=== PATIENT | male | born 1940 | race Caucasian/White ===

== ENCOUNTER 2021-07-04 00:33 | Emergency (ER) | payer OTHER ==
--- OUTSIDE RECORDS SUMMARY | 2021-07-04 00:36 | XMS REPORT | Continuity of Care Document ---
:1940 Author Organization [facility] t Address [address] [place] [address] Dr. Garcia [address] [place] [address] Care Team Providers Name Role Phone Unavailable Unavailable Unavailable Problems This patient has no known problems. Allergies, Adverse Reactions, Alerts This patient has no known allergies or adverse reactions. Medications This patient has no known medications. Procedures This patient has no known procedures. Encounters Start End Encounter Admission Attending Care Care Encounter Source Date/Time Date/Time Type Type Clinicians Facility Department ID 2018-11-09 2018-11-09 Inpatient E [facility] [address] [facility] 18:05:00 15:34:00 Results This patient has no known results.
[2021-07-04 01:24] LABS: Absolute Lymphocytes (CBC) 1.4 K/uL (0.7-4.9); Hematocrit 34.2 % (39.6-49.0); Lymphocytes % 19.9 % (15.3-44.8); MPV 7.2 fL (7.6-11.3); RBC Red Blood Cell Count 3.88 M/uL (4.33-5.43)
[2021-07-04] MEDS ORDERED: NA CHLORIDE 0.9% 500 ML ONE (01:31)
[2021-07-04 01:44] LABS: Urine Blood 1+ (Negative); Urine Glucose Negative (Negative); Urine Protein 2+ (Negative); Urine Specific Gravity 1.025 (1.005-1.030); Urine pH 5.5 (5.0-7.0)
[2021-07-04 01:45] LABS: Potassium 4.4 mmol/L (3.5-5.1)
[2021-07-04 01:51] LABS: Urine Bacteria >50 /HPF (NONE SEEN); Urine RBC <5 /HPF (NONE SEEN)
[2021-07-04] MEDS ORDERED: CEFTRIAXONE 1000 MG/VIAL ONE (02:15)
--- NOTE | 2021-07-04 02:24 | ER ---
Nurse's Notes [facility] Name: Tan Hawk Age: 81 yrs Sex: Male : 1940 Arrival Date: 07/04/2021 Time: 00:36 Bed 20 Private MD: Diagnosis: Constipation, unspecified;UTI/ Urinary tract infection, site not specified Presentation: 07/04 00:36 Chief complaint: EMS states: pt has been having difficulty urinating and having bowel sm5 movements for a few days. when pt is able to urinate, his urine is cloudy. pt's states his bowel movements are hard and dark in color. Coronavirus screen: Vaccine status: Patient reports receiving the 2nd dose of the covid vaccine. Ebola Screen: No symptoms or risks identified at this time. Initial Sepsis Screen: Does the patient meet any 2 criteria? No. Patient's initial sepsis screen is negative. Does the patient have a suspected source of infection? No. Patient's initial sepsis screen is negative. Risk Assessment: Do you want to hurt yourself or someone else? Patient reports no desire to harm self or others. Onset of symptoms was July 01, 2021. 00:36 Method Of Arrival: EMS: [facility] 00:36 Acuity: [place] 4 sm5 Triage Assessment: 00:39 General: Appears in no apparent distress. Behavior is cooperative, appropriate for age. sm5 Pain: Denies pain. GI: Parent/caregiver reports the patient having dark hard stools. : Reports inability to void, cloudy urine. Historical: - Allergies: 00:38 Amoxicillin; sm5 - PMHx: 00:38 Cerebrovascular accident; Hypertensive disorder; sm5 - Immunization history:: Client reports receiving the 2nd dose of the Covid vaccine, Flu vaccine is not up to date. - Social history:: Smoking status: Patient/guardian denies using tobacco, the patient reports quitting approximately 40 years ago. Screenin:42 Abuse screen: Denies threats or abuse. Denies injuries from another. Nutritional kd3 screening: No deficits noted. Tuberculosis screening: No symptoms or risk factors identified. Fall Risk Fall in past 12 months (25 points). Assessment: 00:40 General: Appears in no apparent distress. Behavior is calm, cooperative, appropriate kd3 for age. Neuro: Level of Consciousness is awake, alert, Oriented to person, place, time, situation, Speech is slurred, slurred, sometimes normal. at baseline due to previous stroke . 02:40 Reassessment: No changes from previously documented assessment. Patient and/or family kd3 updated on plan of care and expected duration. Pain level reassessed. Patient is alert, oriented x 3, equal unlabored respirations, skin warm/dry/pink. Vital Signs: 00:36 BP 141 / 76; Pulse 63; Resp 17; Temp 97.6(O); Pulse Ox 100% on R/A; Weight 45.36 kg; sm5 Height 5 ft. 7 in. (170.18 cm); Pain 0/10; 00:41 BP 134 / 95; Pulse 68; Resp 16; Pulse Ox 100% on R/A; kd3 02:41 BP 132 / 75; Pulse 82; Resp 16; Pulse Ox 100% on R/A; kd3 00:36 Body Mass Index 15.66 (45.36 kg, 170.18 cm) 5 ED Course: 00:36 Patient arrived in ED. sm5 00:37 Yaya Hare NP is PHCP. pm1 00:37 Anthony Guthrie MD is Attending Physician. pm1 00:38 Triage completed. sm5 00:39 Arm band placed on right wrist. sm5 00:40 Neetu Antonio, LAVERN is Primary Nurse. kd3 00:42 Patient has correct armband on for positive identification. Bed in low position. Call 3 light in reach. Side rails up X 1. 01:14 CBC with Diff Sent. kd3 01:14 BMP Sent. kd3 01:46 CT Abd/Pelvis - Without Contrast In Process Unspecified. EDMS 01:49 Inserted saline lock: 22 gauge in right antecubital area, using aseptic technique. kd3 02:40 No provider procedures requiring assistance completed. kd3 03:12 IV discontinued, intact, bleeding controlled, No redness/swelling at site. Pressure kd3 dressing applied. Administered Medications: 01:49 Drug: NS 0.9% 500 ml Route: IV; Rate: bolus; Site: right antecubital; kd3 02:33 Follow up: Response: No adverse reaction; Rate change 500 ml; IV Status: Completed kd3 infusion 02:42 Follow up: Rate change 500 ml; IV Status: Completed infusion kd3 02:16 Drug: Rocephin (cefTRIAXone) 1 grams Route: IV; Rate: calculated rate; Site: right kd3 antecubital; 02:32 Follow up: Response: No adverse reaction kd3 02:33 Follow up: Response: No adverse reaction kd3 02:42 Follow up: Rate change 10 ml; IV Status: Completed infusion kd3 02:42 Follow up: Response: No adverse reaction kd3 02:32 Drug: traMADol 50 mg Route: PO; kd3 02:32 Follow up: Response: No adverse reaction kd3 Outcome: 02:23 Discharge ordered by MD. pm1 02:40 Discharged to home via ambulance. kd3 02:40 Condition: stable 02:40 Discharge instructions given to patient, family, Instructed on discharge instructions, follow up and referral plans. medication usage, Demonstrated understanding of instructions, follow-up care, medications, Prescriptions given X 2. 03:44 Patient left the ED. kd3 Signatures: Dispatcher [employer] EDMS Yaya Hare NP RECRUITMENT INTERN pm1 Neetu Antonio RN RN kd3 Janet Olea RN RN sm5
--- NOTE | 2021-07-04 02:24 | EDPHYS ---
Physician Documentation [facility] Name: Tan Hawk Age: 81 yrs Sex: Male : 1940 Arrival Date: 07/04/2021 Time: 00:36 Bed 20 Private MD: ED Physician Anthony Guthrie HPI: 07/04 01:01 This 81 yrs old Male presents to ER via EMS with complaints of constipation. pm1 01:01 The patient presents with Constipation. pm1 01:01 Onset: The symptoms/episode began/occurred 1 week(s) ago, Patient with small hard bowel pm1 movements for the past week. Last small bowel movement this AM. Associated signs and symptoms: Pertinent positives: dysuria, Pertinent negatives: nausea, vomiting, and diarrhea, chest pain, fever, shortness of breath. Modifying factors: The symptoms are alleviated by nothing, the symptoms are aggravated by nothing. The patient has been recently seen by a physician: Patient seen by urology last week for issues with urinating. Had voiding test and has follow up appointment for test results this week. Historical: - Allergies: 00:38 Amoxicillin; sm5 - PMHx: 00:38 Cerebrovascular accident; Hypertensive disorder; sm5 - Immunization history:: Client reports receiving the 2nd dose of the Covid vaccine, Flu vaccine is not up to date. - Social history:: Smoking status: Patient/guardian denies using tobacco, the patient reports quitting approximately 40 years ago. ROS: 01:01 Constitutional: Negative for fever, chills, and weight loss, Cardiovascular: Negative pm1 for chest pain, palpitations, and edema, Respiratory: Negative for shortness of breath, cough, wheezing, and pleuritic chest pain. 01:01 Back: Negative for injury and pain, MS/Extremity: Negative for injury and deformity, Skin: Negative for injury, rash, and discoloration, Neuro: Negative for headache, weakness, numbness, tingling, and seizure. 01:01 Abdomen/GI: Positive for abdominal pain, constipation, Negative for nausea, vomiting, and diarrhea. 01:01 : Positive for Dark urine. 01:01 All other systems are negative. Exam: 01:01 Constitutional: This is a well developed, well nourished patient who is awake, alert, pm1 and in no acute distress. Head/Face: Normocephalic, atraumatic. 01:01 Skin: Warm, dry with normal turgor. Normal color with no rashes, no lesions, and no evidence of cellulitis. MS/ Extremity: Pulses equal, no cyanosis. Neurovascular intact. Full, normal range of motion. 01:01 ENT: Exam is negative for acute changes, Mouth: no acute changes, Lips: normal, moist, Oral mucosa: normal, pink and intact, moist. 01:01 Cardiovascular: Exam negative for acute changes, Rate: normal, Rhythm: regular, Pulses: no pulse deficits are appreciated. 01:01 Respiratory: Exam negative for acute changes, respiratory distress, shortness of breath. 01:01 Abdomen/GI: Inspection: abdomen appears normal, Palpation: abdomen is soft and non-tender, in all quadrants. 01:01 Neuro: Exam negative for acute changes, Orientation: is normal, Mentation: is normal, Motor: is normal, moves all fours. Vital Signs: 00:36 BP 141 / 76; Pulse 63; Resp 17; Temp 97.6(O); Pulse Ox 100% on R/A; Weight 45.36 kg; 5 Height 5 ft. 7 in. (170.18 cm); Pain 0/10; 00:41 BP 134 / 95; Pulse 68; Resp 16; Pulse Ox 100% on R/A; kd3 02:41 BP 132 / 75; Pulse 82; Resp 16; Pulse Ox 100% on R/A; kd3 00:36 Body Mass Index 15.66 (45.36 kg, 170.18 cm) [facility] MDM: 00:53 Patient medically screened. pm1 02:23 Data reviewed: vital signs. Data interpreted: Pulse oximetry: on room air is 100 %. pm1 Interpretation: normal. Counseling: I had a detailed discussion with the patient and/or guardian regarding: the historical points, exam findings, and any diagnostic results supporting the discharge/admit diagnosis, lab results, radiology results, the need for outpatient follow up, to return to the emergency department if symptoms worsen or persist or if there are any questions or concerns that arise at home. 07/04 00:58 Order name: CBC with Diff; Complete Time: 02:07 pm1 07/04 00:58 Order name: BMP; Complete Time: 02:07 pm1 07/04 00:58 Order name: CT Abd/Pelvis - Without Contrast pm1 07/04 00:58 Order name: Urine Microscopic Only; Complete Time: 02:07 pm1 07/04 01:44 Order name: Urine Dipstick-Ancillary; Complete Time: 02:07 EDMS 07/04 01:52 Order name: Urine Culture EDMS 07/04 00:58 Order name: Urine Dipstick-Ancillary (obtain specimen); Complete Time: 01:49 pm1 07/04 00:58 Order name: Bladder Scanner; Complete Time: 01:25 pm1 07/04 00:58 Order name: IV Saline Lock; Complete Time: 01:14 pm1 Administered Medications: 01:49 Drug: NS 0.9% 500 ml Route: IV; Rate: bolus; Site: right antecubital; kd3 02:33 Follow up: Response: No adverse reaction; Rate change 500 ml; IV Status: Completed kd3 infusion 02:42 Follow up: Rate change 500 ml; IV Status: Completed infusion kd3 02:16 Drug: Rocephin (cefTRIAXone) 1 grams Route: IV; Rate: calculated rate; Site: right kd3 antecubital; 02:32 Follow up: Response: No adverse reaction kd3 02:33 Follow up: Response: No adverse reaction kd3 02:42 Follow up: Rate change 10 ml; IV Status: Completed infusion kd3 02:42 Follow up: Response: No adverse reaction kd3 02:32 Drug: traMADol 50 mg Route: PO; kd3 02:32 Follow up: Response: No adverse reaction kd3 Disposition: 04:09 Co-signature as Attending Physician, Anthony Guthrie MD I agree with the assessment and kdr plan of care. Disposition Summary: 07/04/21 02:23 Discharge Ordered Location: Home pm1 Problem: new pm1 Symptoms: have improved pm1 Condition: Stable pm1 Diagnosis - Constipation, unspecified pm1 - UTI/ Urinary tract infection, site not specified pm1 Followup: pm1 - With: Emergency Department - When: As needed - Reason: Worsening of condition Followup: pm1 - With: Private Physician - When: 2 - 3 days - Reason: Recheck today's complaints, Continuance of care, Re-evaluation by your physician Discharge Instructions: - Discharge Summary Sheet pm1 - Constipation, Adult pm1 - Urinary Tract Infection, Adult pm1 Forms: - Medication Reconciliation Form pm1 - Thank You Letter pm1 - Antibiotic Education pm1 - Prescription Opioid Use pm1 Prescriptions: - Miralax 17 gram Oral powder in packet - take 1 packet by ORAL route once daily As needed; 7 packet; Refills: 0, Product pm1 Selection Permitted - Bactrim DS 800-160 mg Oral Tablet - take 1 tablet by ORAL route every 12 hours for 10 days; 20 tablet; Refills: 0, pm1 Product Selection Permitted Signatures: Dispatcher [employer] EDAnthony Garzon MD MD kdr Marinas, Patrick, NP GUN EXAMINER pm1 Neetu Antonio, RN RN kd3 Janet Olea RN RN sm5
[2021-07-04] MEDS ORDERED: TRAMADOL HCL 50 MG TAB ONE (02:32)
[2021-07-04 03:50] VITALS: TEMP 97.6; O2SAT 100
[2021-07-04 03:52] VITALS: BP 132/75
--- NOTE | 2021-07-04 10:48 | RAD REPORT ---
EXAM DESCRIPTION: CT ABDOMEN PELVIS WITHOUT IV CONTRAST CLINICAL HISTORY: Dysuria;Constipation COMPARISON: None. TECHNIQUE: CT ABDOMEN PELVIS WITHOUT IV CONTRAST on 07/04/2021 12:58 AM GREENHOUSE TECHNICIAN This exam was performed according to our departmental dose-optimization program, which includes autom ated exposure control, adjustment of the mA and/or kV according to patient size and/or use of iterati ve reconstruction technique. FINDINGS: There is bibasilar atelectasis and scarring. Abdomen: The liver is normal in appearance. There is no biliary dilatation. Gallbladder is normal in appearance. Supraumbilical ventral hernia repair was performed. The pancreas and spleen are normal in appearance. The adrenal glands and kidneys are unremarkable. Abdominal aorta is densely calcified without aneurysm. There is no free air. There is no retroperiton eal adenopathy. Pelvis: There is large amount of distal colonic stool. There is mild diverticulosis throughout the co jose. There is mild thickening of the urinary bladder measuring up to 8 mm. There is no free fluid. Skeleton: There are no acute osseous findings. No suspicious bony lesions. There is rightward curvatu re of the lumbar spine. IMPRESSION: Constipation. Diffuse thickening of the urinary bladder. Electronically signed by: Ulises Tee MD 07/04/2021 2:14 AM GREENHOUSE TECHNICIAN Due to temporary technical issues with the PACS/Fluency reporting system, reports are being signed by the in house radiologists without review as a courtesy to insure prompt reporting. The interpreting radiologist is fully responsible for the content of the report.
== END 2021-07-04 03:44 | disposition home or self-care (01) ==
LOC: ER 00:33
DX: N39.0 Urinary tract infection, site not specified (principal); K59.00 Constipation, unspecified; I10 Essential (primary) hypertension; Z88.1 Allergy status to other antibiotic agents
CPT/HCPCS: 87088; 85025; 87086; 80048; 36415; 74176; J7040; 81003; 81015; 96365; 99284

== ENCOUNTER 2021-07-07 16:28 | Inpatient (IN) | payer OTHER ==
--- OUTSIDE RECORDS SUMMARY | 2021-07-07 16:30 | XMS REPORT | Continuity of Care Document ---
:1940 Author Organization [facility] t Address [address] [place] [address] Dr. Garcia [address] [place] [address] Care Team Providers Name Role Phone Unavailable [...] Facility Department ID 2018-11-09 2018-11-09 Inpatient E [facility] [address] [facility] 18:05:00 15:34:00 Results This patient has no known results.
--- NOTE | 2021-07-07 17:12 | RAD REPORT ---
EXAM DESCRIPTION: CT - Head C Spine Mpr Wo Con - 07/07/2021 4:54 pm CLINICAL HISTORY: Head and neck injury status post fall. Head and neck pain COMPARISON: None. TECHNIQUE: Computed axial tomography of the head and cervical spine was obtained. Sagittal and coronal reconstruction was performed. All CT scans are performed using dose optimization technique as appropriate and may include automated exposure control or mA/KV adjustment according to patient size. FINDINGS: The images are degraded by patient motion artifact. 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 Cerebral atrophy An intracranial bleed is not seen. The ventricles are normal in caliber. An extra-axial fluid collect ion is not noted.Fluid within the visualized sinuses and mastoids is not seen A cervical fracture is not visualized. No dislocation is noted. IMPRESSION: Images degraded by patient motion artifact No acute intracranial abnormality is seen. A cervical fracture is not visualized. If the patient continues to have symptoms to suggest intracra nial /spinal cord pathology then MRI would be recommended
--- NOTE | 2021-07-07 17:19 | RAD REPORT ---
EXAM DESCRIPTION: Sandy Single View07/07/2021 5:07 pm CLINICAL HISTORY: Chest pain COMPARISON: 2009 FINDINGS: The lungs appear clear of acute infiltrate. The heart is normal size IMPRESSION: No acute abnormalities displayed
[2021-07-07 17:21] LABS: Absolute Lymphocytes (CBC) 0.8 K/uL (0.7-4.9); Hematocrit 26.2 % (39.6-49.0); Lymphocytes % 8.6 % (15.3-44.8); MPV 7.3 fL (7.6-11.3); RBC Red Blood Cell Count 2.97 M/uL (4.33-5.43)
[2021-07-07 17:41] LABS: Urine Blood 2+ (Negative); Urine Glucose Negative (Negative); Urine Protein Negative (Negative); Urine Specific Gravity 1.025 (1.005-1.030)
[2021-07-07 17:45] LABS: Albumin 3.6 g/dL (3.4-5.0); Bilirubin Direct 0.1 mg/dL (0-0.2); Bilirubin Total 0.3 mg/dL (0.2-1.0); Potassium 5.1 mmol/L (3.5-5.1); Protein, Total 6.9 g/dL (6.4-8.2); Troponin High Sensitivity 8.7 pg/mL (<58.9)
--- NOTE | 2021-07-07 21:02 | EDPHYS ---
Physician Documentation [facility] Name: Tan Hawk Age: 81 yrs Sex: Male : 1940 Arrival Date: 07/07/2021 Time: 16:41 Bed 24 Private MD: ED Physician Anthony Guthrie HPI: 07/07 16:46 This 81 yrs old Male presents to ER via EMS with complaints of Fall Injury. [facility] 16:46 Details of fall: The patient fell from an upright position. Onset: The symptoms/episode jmm began/occurred acutely, 1 day(s) ago. Associated injuries: The patient sustained injury to the head. This is a 81-year-old male with history of CVA and hypertension the presents emerged department with multiple falls which occurred yesterday. Patient hit his head at approximately 1 AM early this morning. Family states that patient is at creased confusion today. Patient is currently being treated with Bactrim for UTI. Patient was seen on the eighth of this month.. Historical: - Allergies: 16:59 Amoxicillin; jl7 - PMHx: 16:59 Cerebrovascular accident; Hypertensive disorder; jl7 - Immunization history:: Adult Immunizations unknown. - Social history:: Smoking status: unknown. ROS: 16:46 Cardiovascular: Negative for chest pain, palpitations, and edema. jmm 16:46 Constitutional: Positive for fatigue. 16:46 Respiratory: Positive for Negative for shortness of breath. 16:46 Neuro: Positive for altered mental status. 16:46 All other systems are negative. Exam: 16:46 Eyes: EOMI, no conjunctival erythema appreciated ENT: Moist Mucus Membranes Neck: jmm Trachea midline, Supple Chest/axilla: Normal chest wall appearance and motion. Cardiovascular: Regular rate and rhythm. No edema appreciated Respiratory: Normal respirations, no respiratory distress appreciated Abdomen/GI: Non distended, soft Back: Normal ROM Skin: General appearance color normal 16:46 Constitutional: The patient appears in no acute distress, alert, awake. 16:46 Head/face: 2 cm laceration noted to the posterior scalp. 16:46 Musculoskeletal/extremity: No edema appreciated. 16:46 Skin: 2 cm laceration over the posterior scalp. 16:46 Neuro: Orientation: to person, place. 16:46 Psych: Behavior/mood is pleasant, cooperative. Vital Signs: 16:41 BP 97 / 55; Pulse 76; Resp 17; Temp 97.5; Pulse Ox 96% ; Weight 45.36 kg; Height 5 ft. jl7 6 in. (167.64 cm); Pain 0/10; 17:05 BP 97 / 73; Pulse 69; Resp 20 S; Pulse Ox 100% on R/A; jg9 19:19 BP 111 / 60; Pulse 79; Resp 18 S; Pulse Ox 99% on R/A; as6 20:37 BP 130 / 119; Pulse 83; Resp 20; Pulse Ox 92% on R/A; tw5 21:50 BP 125 / 66; Pulse 88; Resp 24; Pulse Ox 96% on R/A; tw5 22:22 BP 143 / 130; Pulse 87; Resp 18; Pulse Ox 96% on R/A; tw5 16:41 Body Mass Index 16.14 (45.36 kg, 167.64 cm) jl7 Benita Coma Score: 16:41 Eye Response: spontaneous(4). Verbal Response: oriented(5). Motor Response: obeys jl7 commands(6). Total: 15. Trauma Score (Adult): 16:41 Eye Response: spontaneous(1); Verbal Response: confused(1); Motor Response: obeys jl7 commands(2); Systolic BP: > 89 mm Hg(4); Respiratory Rate: 10 to 29 per min(4); England Score: 14; Trauma Score: 12 MDM: 16:46 Patient medically screened. [facility] 21:00 Data reviewed: vital signs, nurses notes. Counseling: I had a detailed discussion with [facility] the patient and/or guardian regarding: the historical points, exam findings, and any diagnostic results supporting the discharge/admit diagnosis, lab results, radiology results, the need for further work-up and treatment in the hospital. ED course: I discussed the patient with Aston DURHAM whom accepted the patient to Dr. Buitrago service. . 22:12 ED course: Patient's labs are concerning for acute kidney injury. There is increased [facility] creatinine. There is a drop of 2-1/2 points in the hemoglobin from the eighth. Patient denied dark tarry stools. Guaiac did not reveal a positive result. I do not currently suspect GI bleed.. 07/07 16:47 Order name: Basic Metabolic Panel [facility] 07/07 16:47 Order name: CBC with Diff; Complete Time: 17:57 [facility] 07/07 16:47 Order name: LFT's; Complete Time: 17:57 [facility] 07/07 16:47 Order name: Troponin HS; Complete Time: 17:57 [facility] 07/07 16:48 Order name: Basic Metabolic Panel; Complete Time: 17:57 [facility] 07/07 17:40 Order name: Urine Dipstick-Ancillary; Complete Time: 17:57 [facility] 07/07 21:03 Order name: SARS-COV-2 RT PCR (Document "Date of Onset" if Symptomatic); Complete Time: [facility] 15:07/08 04:07 Order name: CBC with Automated Diff; Complete Time: 15:29 [facility] 07/08 04:33 Order name: Comprehensive Metabolic Panel; Complete Time: 15:29 [facility] 07/08 04:33 Order name: Phosphorus; Complete Time: 15:29 [facility] 07/08 04:33 Order name: Lipid Profile; Complete Time: 15:29 [facility] 07/08 04:33 Order name: T4 Free; Complete Time: 15:29 [facility] 07/08 04:33 Order name: Magnesium; Complete Time: 15:29 [facility] 07/08 04:33 Order name: Thyroid Stimulating Hormone; Complete Time: 15:29 [facility] 07/07 16:47 Order name: CT Head C Spine; Complete Time: 17:15 [facility] 07/07 16:47 Order name: Urine Dipstick-Ancillary (obtain specimen); Complete Time: 19:19 [facility] 07/07 16:47 Order name: XRAY Chest (1 view); Complete Time: 17:29 [facility] 07/07 16:47 Order name: EKG; Complete Time: 16:48 [facility] 07/07 16:47 Order name: Cardiac monitoring; Complete Time: 17:16 [facility] 07/07 16:47 Order name: EKG - Nurse/Tech; Complete Time: 17:29 [facility] 07/08 04:34 Order name: Creatine Phosphokinase; Complete Time: 15:29 [facility] 07/08 09:56 Order name: Urinalysis; Complete Time: 15:29 [facility] 07/08 10:05 Order name: UR SODIUM; Complete Time: 15:29 [facility] 07/08 10:05 Order name: UR POTASSIUM; Complete Time: 15:29 [facility] 07/08 10:07 Order name: Urine Microscopic Only; Complete Time: 15:29 [facility] 07/08 10:11 Order name: Ur Protein; Complete Time: 15:29 [facility] 07/08 10:27 Order name: Osmolality, Urine; Complete Time: 15:29 [facility] 07/08 10:34 Order name: US; Complete Time: 15:29 [facility] 07/07 16:47 Order name: IV Saline Lock; Complete Time: 17:16 [facility] 07/07 16:47 Order name: Labs collected and sent; Complete Time: 17:16 [facility] 07/07 16:47 Order name: O2 Per Protocol; Complete Time: 19:14 [facility] 07/07 16:47 Order name: O2 Sat Monitoring; Complete Time: 17:16 [facility] Administered Medications: 21:38 CANCELLED (Physician Discretion): NS 0.45 % 1000 ml IV at bolus once sb3 21:50 Drug: NS 0.9% 1000 ml Route: IV; Rate: 1 bolus; Site: left antecubital; tw5 07/08 00:33 Follow up: IV Status: Completed infusion; IV Intake: 1000ml sv1 Disposition Summary: 07/07/21 21:02 Hospitalization Ordered Hospitalization Status: Observation [facility] Provider: Elliott Siegel Condition: Stable [facility] Problem: new [facility] Symptoms: are unchanged [facility] Bed/Room Type: Standard [facility] Location: Telemetry/MedSurg (observation)(07/08/21 16:27) dw Room Assignment: [facility](07/08/21 16:27) dw Diagnosis - Acute Kidney Injury jmm - Dehydration jmm - Near Syncope [facility] Forms: - Medication Reconciliation Form jmm - SBAR form [facility] Signatures: Dispatcher [employer] Silvia Martinez RN RN Herman Arora PA PA Jenna Cohen RN RN Zeynep Ibanez RN RN Taisha Galan tw5 Nai Clancy PA PA sb3 Mauricio Winslow RN sv1 Corrections: (The following items were deleted from the chart) 07/07 21:36 21:02 Telemetry/MedSurg (Inpatient) [facility] bb 21:36 21:02 jmm bb 21:38 21:37 NS 0.45 % 1000 ml IV at bolus once ordered. sb3 sb3 07/08 16:07/07 21:36 BR ER HOLD bb dw 07/08 21:36 ERHOLD- bb dw
--- NOTE | 2021-07-07 21:02 | ER ---
Nurse's Notes [facility] Name: Tan Hawk Age: 81 yrs Sex: Male : 1940 Arrival Date: 07/07/2021 Time: 16:41 Bed 24 Private MD: Diagnosis: Acute Kidney Injury;Dehydration;Near Syncope Presentation: 07/07 16:41 Chief complaint: EMS states: Pt fell last night at 1999, hit back of head, takes jl7 Plavix, pt's is primary caregiver and reports pt has had increased confusion today. Care prior to arrival: IV initiated. 18 GA, in the left antecubital area, Glucose check: 104. Mechanism of Injury: Fall from standing position. Trauma event details: Injury occurred in the [facility], Injury occurred: at home. Injury occurred: July 06, 2021 Injury occurred at: 20:00. 16:41 Acuity: [place] 2 jl7 16:41 Method Of Arrival: EMS: [facility] jl7 16:58 Coronavirus screen: At this time, the client does not indicate any symptoms associated jl7 with coronavirus-19. Ebola Screen: No symptoms or risks identified at this time. Initial Sepsis Screen: Does the patient meet any 2 criteria? No. Patient's initial sepsis screen is negative. Does the patient have a suspected source of infection? No. Patient's initial sepsis screen is negative. Risk Assessment: Do you want to hurt yourself or someone else? Patient reports no desire to harm self or others. Onset of symptoms was July 06, 2021 at 20:00. Trauma Activation: Alert Physician: ED Physician; Name: Jerri; Notified At: 16:40; Arrived At: 16:41 Physician: General Surgeon; Name: ; Notified At: 16:41; Arrived At: Physician: Radiology; Name: Sathya; Notified At: 16:41; Arrived At: 16:41 Physician: Respiratory; Name: ; Notified At: 16:41; Arrived At: Physician: Lab; Name: ; Notified At: 16:41; Arrived At: Historical: - Allergies: 16:59 Amoxicillin; jl7 - PMHx: 16:59 Cerebrovascular accident; Hypertensive disorder; jl7 - Immunization history:: Adult Immunizations unknown. - Social history:: Smoking status: unknown. Screenin:41 Abuse screen: Denies threats or abuse. Denies injuries from another. Tuberculosis jl7 screening: No symptoms or risk factors identified. 21:50 Fall Risk Fall in past 12 months (25 points). Secondary diagnosis (15 points). tw5 21:50 Nutritional screening: No deficits noted. tw5 Primary Survey: 16:41 NO uncontrolled hemorrhage observed. Breathing/Chest: Respiratory pattern: regular, jl7 Respiratory effort: spontaneous, unlabored, Chest inspection: symmetrical rise and fall of the chest. Circulation: Skin color: pink. Disability Alert. Exposure/Environment: There is no evidence of uncontrolled external bleeding. Obvious injury(ies) are noted at this time: abrasion to posterior scalp A warming method has been applied: A warm blanket has been provided to the patient. 07/08 00:17 Reassessment Airway Airway Patent Breathing/Chest Respiratory pattern Regular tw5 Circulation Pulses Palpable. Assessment: 07/07 16:41 General: Appears in no apparent distress. uncomfortable, Behavior is calm, cooperative, jl7 appropriate for age. Pain: Denies pain. Neuro: Level of Consciousness is awake, alert, obeys commands, Oriented to person, place, situation. Cardiovascular: Patient's skin is warm and dry. Respiratory: Airway is patent Respiratory effort is even, unlabored, Respiratory pattern is regular, symmetrical. Derm: Skin is pink, warm \T\ dry. Injury Description: Abrasion sustained to scalp is dirty, was sustained 12-24 hours ago. 19:20 General: Appears in no apparent distress. Behavior is calm, cooperative. General: as6 at bedside, updated on plan of care . Pain: Denies pain. Cardiovascular: Denies chest pain. Respiratory: Airway is patent Trachea midline Respiratory effort is even, unlabored, Respiratory pattern is regular, symmetrical, Denies shortness of breath. 20:37 General: updated family on wait time. Repositioned patient in bed. . tw5 22:22 Reassessment: Patient appears in no apparent distress at this time. No changes from tw5 previously documented assessment. Patient and/or family updated on plan of care and expected duration. Pain level reassessed. Patient is alert, oriented x 3, equal unlabored respirations, skin warm/dry/pink. General: Appears in no apparent distress. Vital Signs: 16:41 BP 97 / 55; Pulse 76; Resp 17; Temp 97.5; Pulse Ox 96% ; Weight 45.36 kg; Height 5 ft. jl7 6 in. (167.64 cm); Pain 0/10; 17:05 BP 97 / 73; Pulse 69; Resp 20 S; Pulse Ox 100% on R/A; jg9 19:19 BP 111 / 60; Pulse 79; Resp 18 S; Pulse Ox 99% on R/A; as6 20:37 BP 130 / 119; Pulse 83; Resp 20; Pulse Ox 92% on R/A; tw5 21:50 BP 125 / 66; Pulse 88; Resp 24; Pulse Ox 96% on R/A; tw5 22:22 BP 143 / 130; Pulse 87; Resp 18; Pulse Ox 96% on R/A; tw5 16:41 Body Mass Index 16.14 (45.36 kg, 167.64 cm) jl7 [place] Coma Score: 16:41 Eye Response: spontaneous(4). Verbal Response: oriented(5). Motor Response: obeys jl7 commands(6). Total: 15. Trauma Score (Adult): 16:41 Eye Response: spontaneous(1); Verbal Response: confused(1); Motor Response: obeys jl7 commands(2); Systolic BP: > 89 mm Hg(4); Respiratory Rate: 10 to 29 per min(4); Benita Score: 14; Trauma Score: 12 ED Course: 16:41 Patient [facility] in ED[address] [facility] [place] 16:41 [facility] 16:41 Anthony Guthrie MD is Attending Physician. [facility] 16:41 Patient has correct armband on for positive identification. Bed in low position. Call jl7 light in reach. Side rails up X2. 16:41 Patient maintains SpO2 saturation greater than 95% on room air. Thermoregulation: warm jl7 blanket given to patient. 16:47 Triage completed. jl7 16:54 CT Head C Spine In Process Unspecified. EDMS 16:[address] jh6 16:59 Arm band placed on right wrist. jl7 17:07 XRAY Chest (1 view) In Process Unspecified. EDMS 17:16 Basic Metabolic Panel Sent. jg9 17:17 No apparent distress. Resting quietly. Pt visited by daughter. jg9 17:17 Lucy Dominguez, RN is Primary Nurse. j9 20:41 Primary Nurse role handed off by Lucy Dominguez, RN tw 20:41 Taisha Nascimento is Primary Nurse. [facility] 21:01 Elliott Siegel MD is Hospitalizing Provider. [facility] 21:50 quality assurance monitor on. Pulse ox on. NIBP on. Door closed. Noise minimized. Moved to [facility] private room. Warm blanket given. Verbal reassurance given. Diet: Patient given snack. Repositioned patient. Cleaned of incontinence. Linen changed. Administered Medications: 21:38 CANCELLED (Physician Discretion): NS 0.45 % 1000 ml IV at bolus once sb3 21:50 Drug: NS 0.9% 1000 ml Route: IV; Rate: 1 bolus; Site: left antecubital; [facility] 07/08 00:33 Follow up: IV Status: Completed infusion; IV Intake: 1000ml sv1 Intake: 07/07 21:50 PO: 0ml; Total: 0ml. [facility] 07/08 00:33 IV: 1000ml; Total: 1000ml. sv1 Output: 07/07 21:50 Urine: 0ml; Total: 0ml. [facility] Outcome: 21:02 Decision to Hospitalize by Provider. [facility] 07/08 17:56 Patient left the ED. aa5 Signatures: Dispatcher [employer] EDMS Herman Ricketts PA PA [facility] Marilou Bailey, RN RN aa5 Zeynep Rosario RN RN jl7 Taisha Nascimento tw5 Skinny Mckinnon RN RN as6 Lucy Mathur, RN RN jh6 Lucy Dominguez, RN RN jg9 Mauricio Winslow, RN RN ana rosa1 Nai Clancy sb3
[2021-07-07] MEDS ORDERED: NA CHLORIDE 0.9% 1,000 ML ONE (21:44)
--- NOTE | 2021-07-07 21:52 | P.HP ---
Certification for Inpatient Patient admitted to: Observation With expected LOS: <2 Midnights Patient will require the following post-hospital care: None Practitioner: I am a practitioner with admitting privileges, knowledge of patient current condition, hospital course, and medical plan of care. Services: Services provided to patient in accordance with Admission requirements found in Title 42 Section 412.3 of the Code of Federal Regulations <Nai Clancy - Last Filed: 07/07/21 22:58> Patient History Date of Service: 07/07/21 Reason for admission: OSVALDO, Dehydration, Falls History of Present Illness: Patient is a 81-year-old male with history of CVA and hypertension who presented to the ED via EMS after patient experienced a fall and hit the back of his head. Patient takes Plavix. His states that he was having increasing confusion. Patient does have deficits from his CVA. was not at bedside during my assessment so I am unaware of patient's baseline and where patient is neurologically compared, but per ED report he is around baseline. Patient is alert and oriented x1 on my assessment. Patient was in the ED 3 days ago with complaints of constipation and he was found to have UTI. Discharged and treated with Bactrim. Labs today significant for hemoglobin 8.6 (down from 11.3 days ago, stool guiac negative), creatinine 2.16 (up from 1.63 days ago). Urine was positive for blood and trace leuk esterase. Acute kidney kidney injury could be due to Bactrim. Culture and sensitivity from urine 3 days ago resulted, sensitive to multiple antibiotics. We will switch. ED provider wishes to admit patient for observation. Home medications list reviewed: Yes - Past Medical/Surgical History Diabetic: No -: HTN -: CVA Past Surgical History: Patient denies surgical history Psychosocial/ Personal History: Patient lives at home with his . - Social History Smoking Status: Former smoker Alcohol use: Yes CD- Drugs: No Caffeine use: Yes Place of Residence: Home <AstonNai - Last Filed: 07/07/21 22:58> Date of Service: 07/07/21 <Elliott Siegel - Last Filed: 07/10/21 03:23> Allergies amoxicillin Allergy (Verified 07/08/21 00:12) Anaphylaxis Home Medications: Atorvastatin Calcium 10 mg PO DAILY 07/08/21 Clopidogrel Bisulfate [Plavix] 1 tab PO DAILY 07/08/21 Fenofibrate 160 mg PO DAILY 07/08/21 Gabapentin 2 tab PO TID 07/08/21 Levothyroxine Sodium [Levothyroxine] 1 tab PO DAILY 07/08/21 Sertraline HCl 1 tab PO BID 07/08/21 Tamsulosin HCl 1 tab PO BID 07/08/21 Trazodone HCl 1 tab PO DAILY 07/08/21 lisinopriL [Lisinopril] 1 tab PO DAILY 07/08/21 Cefdinir [Omnicef] 300 mg PO BID #20 capsule 07/09/21 Review of Systems is unable to be obtained <Nai Clancy - Last Filed: 07/07/21 22:58> Physical Examination - Physical Exam General: Alert, In no apparent distress, Oriented x1 HEENT: Atraumatic, PERRLA, EOMI, Sclerae nonicteric Neck: Supple, 2+ carotid pulse no bruit, No LAD, Without JVD or thyroid abnormality Respiratory: Clear to auscultation bilaterally, Normal air movement Cardiovascular: Regular rate/rhythm, Normal S1 S2 Gastrointestinal: Normal bowel sounds, No tenderness Musculoskeletal: No tenderness Integumentary: No rashes Neurological: Sensation intact, Normal affect, Abnormal speech - Studies Laboratory Data (last 24 hrs) 07/07/21 17:10: WBC 8.90 D, Hgb 8.6 L D, Hct 26.2 L D, Plt Count 354 07/07/21 17:10: Sodium 135 L, Potassium 5.1, BUN 39 H, Creatinine 2.16 H, Glucose 108 H, Total Bilirubin 0.3, AST 41 H, ALT 31, Alkaline Phosphatase 51 <Nai Clancy - Last Filed: 07/07/21 22:58> Assessment and Plan - Problems (Diagnosis) (1) Falls Current Visit: Yes Status: Acute Qualifiers: Encounter type: initial encounter Qualified Code(s): W19.XXXA - Unspecified fall, initial encounter (2) Confusion Current Visit: Yes Status: Acute (3) UTI (urinary tract infection) Current Visit: Yes Status: Acute Qualifiers: Urinary tract infection type: acute cystitis Hematuria presence: with hematuria Qualified Code(s): N30.01 - Acute cystitis with hematuria (4) OSVALDO (acute kidney injury) Current Visit: Yes Status: Acute (5) Dehydration Current Visit: Yes Status: Acute (6) Hypotension Current Visit: Yes Status: Acute Qualifiers: Hypotension type: hypotension due to hypovolemia Qualified Code(s): I95.89 - Other hypotension; E86.1 - Hypovolemia (7) History of CVA (cerebrovascular accident) Current Visit: Yes Status: Chronic - Plan -Patient fell and hit the back of his head about 1 day ago and is on Plavix. CT is negative but recommended MRI if confusion worsens or continues. Will speak with to learn more about patient's baseline mentation and neurologic deficits. Pend neurology consult -Patient appears to have an OSVALDO. Dehydration versus nephrotoxic drug use Bactrim from UTI treatment. Urine culture and sensitivity from previous visits shows sensitivity to multiple antibiotics. It appears the UTI is improving but will change to ceftriaxone. Patient denies any dysuria or frequency. Nephrology consulted. -Patient's hemoglobin has also down trended. It was 11 3 days ago and is 8.6 today. Patient stool guaiac was negative. GI bleed unlikely. Will trend hemoglobin. Transfuse if hemoglobin gets below 7. -Patient states he has hypertension. Unsure what medication he takes for. However patient was hypotensive in the ED. We will give a liter fluid bolus and continue to monitor. DVT PPx: Heparin Code: Full Discharge Plan: Home Plan to discharge in: 24 Hours - Advance Directives Does patient have a Living Will: No Does patient have a Durable POA for Healthcare: No - Code Status/Comfort Care Code Status Assessed: Yes (Full) Critical Care: No Time Spent Managing Pts Care (In Minutes): 70 <Nai Clancy - Last Filed: 07/07/21 22:58> Date of Service: 07/08/21 Subjective: HPI as mentioned above Physical Examination: Vitals: Afebrile vital signs are stable Physical exam: Cardiovascular: Within normal limits. Lungs: Within normal limits Abdomen: Within normal limits Neuro: Awake, alert, oriented to person place and time Assessment: 1. Altered mental status 2. UTI Plan: 1. Continue with current plan of care as mentioned above <Elliott Siegel - Last Filed: 07/10/21 03:23>
[2021-07-08] MEDS ORDERED: ACETAMINOPHEN 500 MG TAB PO PRN (00:15)
[2021-07-08] MEDS ORDERED: ONDANSETRON 4 MG/2 ML VIAL IV PRN (00:15)
--- NOTE | 2021-07-08 03:28 | P.CNS ---
Date of Consult: 07/08/21 Reason for Consult: OSVALDO Requesting Physician: Elliott Siegel Chief Complaint: OSVALDO, Dehydration, Falls History of Present Illness: 81M w/ PMHx of Htn, CVA, & recent UTI who p/w AMS s/p fall. His stated that he fell at home 2 days ago & hit the back of his head, & he has developed worsening confusion since then. Head CT is negative. He was diagnosed w/ UTI 4d ago & received Bactrim. He was hypotensive on presentation. He is referred to Nephrology for OSVALDO. SCr is 2.2, from 1.6 3 days ago. Urine studies pending. Allergies amoxicillin Allergy (Verified 07/08/21 00:12) Anaphylaxis - Past Medical/Surgical History Diabetic: No -: HTN -: CVA Psychosocial/ Personal History: Patient lives at home with his . - Social History Alcohol use: Yes CD- Drugs: No Caffeine use: Yes Place of Residence: Home Physical Examination Laboratory Data (last 24 hrs) 07/07/21 17:10: WBC 8.90 D, Hgb 8.6 L D, Hct 26.2 L D, Plt Count 354 07/07/21 17:10: Sodium 135 L, Potassium 5.1, BUN 39 H, Creatinine 2.16 H, Glucose 108 H, Total Bilirubin 0.3, AST 41 H, ALT 31, Alkaline Phosphatase 51 Conclusions/Impression: # OSVALDO 2/2 prerenal state +/- ATN from prolonged prerenal, on CKD3 SCr 2.2 on adm SCr 1.6 (GFR 42) on 07/04/21 Urinalysis w/ high S.G. F/u urine chem, upcr, renal US, CPK IVF Monitor I/O, renal panel # UTI Received Bactrim prior to adm Ceftriaxone F/u cultures # Hypotension IVF # AMS s/p mechanical fall Hx of CVA Baseline MS unclear Head CT neg # Anemia Monitor H/H FOBT neg
[2021-07-08 04:00] LABS: Absolute Lymphocytes (CBC) 1.7 K/uL (0.7-4.9); Lymphocytes % 20.3 % (15.3-44.8); MPV 7.2 fL (7.6-11.3); RBC Red Blood Cell Count 2.88 M/uL (4.33-5.43)
[2021-07-08 04:33] LABS: Albumin 3.3 g/dL (3.4-5.0); Bilirubin Total 0.4 mg/dL (0.2-1.0); Potassium 4.6 mmol/L (3.5-5.1); Protein, Total 6.6 g/dL (6.4-8.2); Thyroid Stimulating Hormone 0.453 uIU/mL (0.360-3.740)
[2021-07-08] MEDS ORDERED: LORazepam 2 MG/ML VIAL IV ONE (04:57)
[2021-07-08 05:53] VITALS: BMI 16.1
[2021-07-08] MEDS: HEPARIN 5000 UNIT/ML 1 ML VIAL SQ SCH ×2 (09:00→21:51)
[2021-07-08] MEDS: CEFTRIAXONE 1,000 MG in NA CHLORIDE 0.9% 50 ML IVPB SCH (09:00)
[2021-07-08] MEDS ORDERED: CEFTRIAXONE 1000 MG/VIAL ONE (09:45)
[2021-07-08] MEDS ORDERED: NA CHLORIDE 0.9% 50 ML ONE (09:46)
[2021-07-08] MEDS ORDERED: HEPARIN 5000 UNIT/ML 1 ML VIAL ONE (09:47)
[2021-07-08 09:53] LABS: Urine Appearance TURBID (Clear); Urine Bilirubin NEGATIVE (Negative); Urine Blood 3+ (Negative); Urine Color YELLOW (Yellow); Urine Glucose NEGATIVE (Negative); Urine Protein TRACE (Negative); Urine Urobilinogen 0.2 mg/dL (0.2-1.0); Urine pH 5.5 (5.0-7.0)
[2021-07-08 09:55] LABS: Urine Microscopic Reflex ORDER UMIC
[2021-07-08 10:06] LABS: Urine Bacteria <20 /HPF (NONE SEEN); Urine RBC >50 /HPF (NONE SEEN); Urine Urothelial Cells <5 /HPF (NONE SEEN)
[2021-07-08 10:11] LABS: UR PROTEIN 69.9 mg/dL (<11.9); Urine Protein/Creatinine Ratio 0.75 ratio (<0.15)
--- NOTE | 2021-07-08 10:34 | RAD REPORT ---
EXAM DESCRIPTION: US - Renal Ultrasound-Complete - 07/08/2021 6:26 am CLINICAL HISTORY: OSVALDO, assess for hydronephrosis, pyelonephritis COMPARISON: ABDOMINAL EXAM COMPLETE dated 12/31/2013 FINDINGS: Patient cooperation issues resulted in a very limited study. The right kidney measures 7.4 x 7.0 x 6.3 cm.. No hydronephrosis, focal mass or perinephric fluid. The left kidney measures poorly visualized. Moderate urinary bladder debris and cystic wall thickening. IMPRESSION: The examination was very limited due to patient cooperation issues. Normal appearance of the right kidney. The left kidney was very poorly evaluate. Urinary bladder debris in cystic wall thickening could be related to chronic infection. Cystoscopy co uld be performed for further visualization of this region.
--- NOTE | 2021-07-08 10:47 | P.CNS ---
Date of Consult: 07/08/21 Reason for Consult: OSVALDO/ CKD Requesting Physician: Elliott Siegel Chief Complaint: OSVALDO, Dehydration, Falls History of Present Illness: 81 yo WM HTN, CKD presented to the ER following a fall at home with an associated confusion & trauma to the back of his head. He was treated for a UTI three days ago in the ER with Bactrim. The patient follows with me in clinic and was last seen in March 2021. Patient is a 81-year-old male with history of CVA and hypertension who presented to the ED via EMS after patient experienced a fall and hit the back of his head. Patient takes Plavix. His states that he was having increasing confusion. Patient does have deficits from his CVA. was not at bedside during my assessment so I am unaware of patient's baseline and where patient is neurologically compared, but per ED report he is around baseline. Patient is alert and oriented x1 on my assessment. Patient was in the ED 3 days ago with complaints of constipation and he was found to have UTI. Discharged and treated with Bactrim. Labs today significant for hemoglobin 8.6 (down from 11.3 days ago, stool guiac negative), creatinine 2.16 (up from 1.63 days ago). Urine was positive for blood and trace leuk esterase. Acute kidney kidney injury could be due to Bactrim. Culture and sensitivity from urine 3 days ago resulted, sensitive to multiple antibiotics. ED provider wishes to admit patient for ob servation. Allergies amoxicillin Allergy (Verified 07/08/21 00:12) Anaphylaxis Home Medications: Atorvastatin Calcium 10 mg PO DAILY 07/08/21 Clopidogrel Bisulfate [Plavix] 1 tab PO DAILY 07/08/21 Fenofibrate 160 mg PO DAILY 07/08/21 Gabapentin 2 tab PO TID 07/08/21 Levothyroxine Sodium [Levothyroxine] 1 tab PO DAILY 07/08/21 Sertraline HCl 1 tab PO BID 07/08/21 Tamsulosin HCl 1 tab PO BID 07/08/21 Trazodone HCl 1 tab PO DAILY 07/08/21 lisinopriL [Lisinopril] 1 tab PO DAILY 07/08/21 - Past Medical/Surgical History Diabetic: No -: HTN -: CVA Psychosocial/ Personal History: Patient lives at home with his . - Social History Alcohol use: Yes CD- Drugs: No Caffeine use: Yes Place of Residence: Home Review of Systems 10-point ROS is otherwise unremarkable General: Weakness Neurological: Weakness Physical Examination Temp Pulse Resp BP Pulse Ox 97.4 F 89 22 H 125/75 85 L 07/08/21 08:00 07/08/21 08:00 07/08/21 08:00 07/08/21 08:00 07/08/21 08:00 General: In no apparent distress, Cooperative HEENT: Atraumatic Neck: Supple Respiratory: Clear to auscultation bilaterally Cardiovascular: No edema, Regular rate/rhythm Gastrointestinal: Soft and benign, Non-distended Musculoskeletal: No clubbing, No contractures Integumentary: No rashes Neurological: Abnormal speech Laboratory Data (last 24 hrs) 07/07/21 17:10: WBC 8.90 D, Hgb 8.6 L D, Hct 26.2 L D, Plt Count 354 07/07/21 17:10: Sodium 135 L, Potassium 5.1, BUN 39 H, Creatinine 2.16 H, Glucose 108 H, Total Bilirubin 0.3, AST 41 H, ALT 31, Alkaline Phosphatase 51 Imagings Data: EXAM DESCRIPTION: US - Renal Ultrasound-Complete - 07/08/2021 6:26 am CLINICAL HISTORY: OSVALDO, assess for hydronephrosis, pyelonephritis COMPARISON: ABDOMINAL EXAM COMPLETE dated 12/31/2013 FINDINGS: Patient cooperation issues resulted in a very limited study. The right kidney measures 7.4 x 7.0 x 6.3 cm.. No hydronephrosis, focal mass or perinephric fluid. The left kidney measures poorly visualized. Moderate urinary bladder debris and cystic wall thickening IMPRESSION: The examination was very limited due to patient cooperation issues. Normal appearance of the right kidney. The left kidney was very poorly evaluate. Urinary bladder debris in cystic wall thickening could be related to chronic infection. Cystoscopy could be performed for further visualization of this region. EXAM DESCRIPTION: [place] Single View07/07/2021 5:07 pm CLINICAL HISTORY: Chest pain COMPARISON: 2009 FINDINGS: The lungs appear clear of acute infiltrate. The heart is normal size IMPRESSION: No acute abnormalities displayed EXAM DESCRIPTION: CT - Head C Spine Mpr Wo Con - 07/07/2021 4:54 pm CLINICAL HISTORY: Head and neck injury status post fall. Head and neck pain COMPARISON: None. TECHNIQUE: Computed axial tomography of the head and cervical spine was obtained. Sagittal and coronal reconstruction was performed. All CT scans are performed using dose optimization technique as appropriate and may include automated exposure control or mA/KV adjustment according to patient size. FINDINGS: The images are degraded by patient motion artifact. 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 Cerebral atrophy An intracranial bleed is not seen. The ventricles are normal in caliber. An extra-axial fluid collection is not noted.Fluid within the visualized sinuses and mastoids is not seen A cervical fracture is not visualized. No dislocation is noted. IMPRESSION: Images degraded by patient motion artifact No acute intracranial abnormality is seen. A cervical fracture is not visualized. 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 Case reviewed with his .
[2021-07-08] MEDS ORDERED: NA CHLORIDE 0.9% 1,000 ML IV SCH (13:00)
[2021-07-08] MEDS: GABAPENTIN 400 MG CAP PO SCH ×2 (14:00→21:11)
[2021-07-08] MEDS ORDERED: NA CHLORIDE 0.9% 1,000 ML ONE (14:15)
[2021-07-08] MEDS ORDERED: GABAPENTIN 300 MG CAP ONE (14:16)
[2021-07-08] MEDS: TAMSULOSIN 0.4 MG SR CAP PO SCH (21:12)
[2021-07-08] MEDS: TRAZODONE 50 MG TABLET PO SCH (21:12)
[2021-07-08] MEDS: SERTRALINE HCL 100 MG TAB PO SCH (21:12)
[2021-07-08] MEDS ORDERED: LORazepam 2 MG/ML VIAL ONE (23:21)
[2021-07-08] MEDS: LORazepam 2 MG/ML VIAL IV PRN (23:22)
[2021-07-09 06:22] LABS: Absolute Lymphocytes (CBC) 0.8 K/uL (0.7-4.9); Hematocrit 26.2 % (39.6-49.0); Lymphocytes % 8.3 % (15.3-44.8); MPV 7.4 fL (7.6-11.3); RBC Red Blood Cell Count 2.89 M/uL (4.33-5.43)
[2021-07-09] MEDS ORDERED: NA CHLORIDE 0.9% 500 ML ONE (07:15)
[2021-07-09 07:40] LABS: ALT/SGPT 31 U/L (12-78); AST/SGOT 50 U/L (15-37); Albumin 3.4 g/dL (3.4-5.0); Alkaline Phosphatase 39 U/L (45-117); BUN Blood Urea Nitrogen 26 mg/dL (7-18); Bicarbonate 22 mmol/L (21-32); Bilirubin Total 0.4 mg/dL (0.2-1.0); Folic Acid, (Folate) > 20.0 ng/mL (3.1-17.5); Glucose Level 102 mg/dL (74-106); Phosphorus 2.5 mg/dL (2.5-4.9); Potassium 4.4 mmol/L (3.5-5.1); Protein, Total 6.7 g/dL (6.4-8.2); Sodium Level 140 mmol/L (136-145); Transferrin 261 mg/dL (200-360)
--- NOTE | 2021-07-09 08:34 | RAD REPORT ---
EXAM DESCRIPTION: RAD - Chest Single View - 07/09/2021 7:17 am CLINICAL HISTORY: pneumonia COMPARISON: Chest Single View dated 07/07/2021; CHEST PA AND LAT 2 VIEW dated 10/12/2009; CHEST PA AND LAT 2 VIEW dated 09/09/2008 FINDINGS: Lines: None. Lungs: No evidence of edema or pneumonia. Pleural: No significant pleural effusions or pneumothorax. Cardiac: The heart size is within normal limits. Bones: No acute fractures. Other: IMPRESSION: No acute cardiopulmonary disease.
[2021-07-09] MEDS: HOME MED 1 EA UNK (Levothyroxine Sodium [Levothyroxine] 137 MCG Capsule) PO SCH (08:36)
[2021-07-09] MEDS: GABAPENTIN 400 MG CAP PO SCH ×3 (08:40→21:08)
[2021-07-09] MEDS: SERTRALINE HCL 100 MG TAB PO SCH ×2 (08:40→21:09)
[2021-07-09] MEDS: FENOFIBRATE 160 MG TAB PO SCH (08:40)
[2021-07-09] MEDS: VITAMIN D 5,000 UNIT CAP PO SCH (08:40)
[2021-07-09] MEDS: TAMSULOSIN 0.4 MG SR CAP PO SCH ×2 (08:40→21:09)
[2021-07-09] MEDS: MULTIVITAMINS,THERAPEUT 1 TAB PO SCH (08:40)
[2021-07-09] MEDS: ATORVASTATIN 10 MG TAB PO SCH (08:41)
[2021-07-09] MEDS: LORazepam 2 MG/ML VIAL IV PRN (08:42)
[2021-07-09] MEDS: HEPARIN 5000 UNIT/ML 1 ML VIAL SQ SCH ×2 (08:42→21:09)
[2021-07-09] MEDS: CLOPIDOGREL 75 MG TABLET PO SCH (08:42)
[2021-07-09] MEDS: CEFTRIAXONE 1,000 MG in NA CHLORIDE 0.9% 50 ML IVPB SCH (08:42)
[2021-07-09] MEDS ORDERED: lisinopriL 20 MG TAB PO SCH (09:00)
--- NOTE | 2021-07-09 10:13 | EKG ---
Test Date: 2021-07-07 Test Time: 17:27:05 Medical Artist: DREW MEASUREMENT RESULTS: Intervals: Rate: 72 NM: 132 QRSD: 78 QT: 396 QTc: 433 [place]: P: 47 NM: 132 QRS: 23 T: 12 INTERPRETIVE STATEMENTS: Sinus rhythm with fusion complexes ST elevation, consider lateral injury or acute infarct ACUTE [place] Abnormal ECG Compared to ECG 10/12/2009 09:28:15 Fusion complex(es) now present ST (T wave) deviation now present Myocardial infarct finding now present Electronically Signed On 07-09-21 10:11:47 CDT by Mejia Riddle
[2021-07-09] MEDS ORDERED: MORPHINE 2 MG/ML SYR IV ONE (11:40)
[2021-07-09] MEDS: QUETIAPINE 25 MG TAB PO SCH (21:08)
[2021-07-09] MEDS: TRAZODONE 50 MG TABLET PO SCH (21:09)
--- NOTE | 2021-07-10 03:26 | P.PN ---
Subjective Date of Service: 07/08/21 Patient's clinical symptoms are stable. Patient's mentation is a little altered for the . We will continue to monitor overnight and if it improves then possible discharge home. Patient could have toxic encephalopathy from the infection. So we will continue to monitor patient until mentation is cleared up. Anticipate discharge tomorrow. Review of Systems 10-point ROS is otherwise unremarkable Physical Examination - Vital Signs Temperature: 97.4 F Blood Pressure: 98/54 Pulse: 71 Respirations: 18 Pulse Ox (%): 98 - Physical Exam General: Alert, In no apparent distress, Oriented x1, Mild distress HEENT: Atraumatic, PERRLA, EOMI Neck: Supple, JVD not distended Respiratory: Clear to auscultation bilaterally, Normal air movement Cardiovascular: Regular rate/rhythm, Normal S1 S2, No murmurs Gastrointestinal: Normal bowel sounds, Soft and benign, Non-distended, No tenderness Musculoskeletal: No clubbing, No swelling, No tenderness Neurological: Normal speech, Normal tone, Normal affect Lymphatics: No axilla or inguinal lymphadenopathy - Studies Medications List Reviewed: Yes Assessment & Plan - Problems (Diagnosis) (1) OSVALDO (acute kidney injury) Current Visit: Yes Status: Acute (2) Confusion Current Visit: Yes Status: Acute (3) Dehydration Current Visit: Yes Status: Acute (4) UTI (urinary tract infection) Current Visit: Yes Status: Acute Qualifiers: Urinary tract infection type: acute cystitis Hematuria presence: with hematuria Qualified Code(s): N30.01 - Acute cystitis with hematuria (5) History of CVA (cerebrovascular accident) Current Visit: Yes Status: Chronic - Plan Plan: 1. Continue with antibiotics 2. IV fluids 3. Monitor renal function 4. Continue to get patient out of bed and ambulate with physical therapy 5. Monitor patient delirium 6. Most likely sundowning and may need Seroquel 7. GI DVT prophylaxis Discharge Plan: Home Plan to discharge in: Greater than 2 days - Advance Directives Does patient have a Living Will: No Does patient have a Durable POA for Healthcare: No - Code Status/Comfort Care Code Status Assessed: Yes Code Status: Full Code Critical Care: No Time Spent Managing PTS Care (In Minutes): 45
--- NOTE | 2021-07-10 03:28 | P.PN ---
Date of Service: 07/09/21 Subjective Patient's delirium is a little worse. Most likely related from being out of his natural environment. Continue with antibiotics and IV fluids and added Seroquel at night. 07/08/2021 Patient's clinical symptoms are stable. Patient's mentation is a little altered for the . We will continue to monitor overnight and if it improves then possible discharge home. Patient could have toxic encephalopathy from the infection. So we will continue to monitor patient until mentation is cleared up. Anticipate discharge tomorrow. Review of Systems 10-point ROS is otherwise unremarkable Physical Examination - Vital Signs Reviewed - Physical Exam General: Alert, In no apparent distress, Oriented x1, Mild distress Respiratory: Clear to auscultation bilaterally, Normal air movement Cardiovascular: Regular rate/rhythm, Normal S1 S2, No murmurs Gastrointestinal: Normal bowel sounds, Soft and benign, Non-distended, No tenderness Musculoskeletal: No clubbing, No swelling, No tenderness Neurological: Normal speech, Normal tone, Normal affect Assessment & Plan - Problems (Diagnosis) (1) OSVALDO (acute kidney injury) Current Visit: Yes Status: Acute (2) Confusion Current Visit: Yes Status: Acute (3) Dehydration Current Visit: Yes Status: Acute (4) UTI (urinary tract infection) Current Visit: Yes Status: Acute Urinary tract infection type: acute cystitis Hematuria presence: with hematuria Qualified Code(s): N30.01 - Acute cystitis with hematuria (5) History of CVA (cerebrovascular accident) Current Visit: Yes Status: Chronic - Plan Continue with plan of care as mentioned below: 1. Continue with antibiotics 2. IV fluids 3. Monitor renal function 4. Continue to get patient out of bed and ambulate with physical therapy 5. Monitor patient delirium 6. Most likely sundowning and may need Seroquel 7. GI DVT prophylaxis Discharge Plan: Home Plan to discharge in: Greater than 2 days - Advance Directives Does patient have a Living Will: No Does patient have a Durable POA for Healthcare: No - Code Status/Comfort Care Code Status Assessed: Yes Code Status: Full Code Critical Care: No Time Spent Managing PTS Care (In Minutes): 45
[2021-07-10 03:55] LABS: Hematocrit 22.4 % (39.6-49.0); Lymphocytes % 22.6 % (15.3-44.8); MPV 7.2 fL (7.6-11.3); RBC Red Blood Cell Count 2.47 M/uL (4.33-5.43)
[2021-07-10 04:15] LABS: Bilirubin Total 0.4 mg/dL (0.2-1.0); Magnesium 2.1 mg/dL (1.8-2.4); Phosphorus 2.5 mg/dL (2.5-4.9); Potassium 4.3 mmol/L (3.5-5.1); Protein, Total 5.9 g/dL (6.4-8.2)
[2021-07-10] MEDS: HOME MED 1 EA UNK (Levothyroxine Sodium [Levothyroxine] 137 MCG Capsule) PO SCH (09:00)
[2021-07-10] MEDS: CEFTRIAXONE 1,000 MG in NA CHLORIDE 0.9% 50 ML IVPB SCH (10:42)
[2021-07-10] MEDS: TAMSULOSIN 0.4 MG SR CAP PO SCH ×2 (10:42→21:29)
[2021-07-10] MEDS: MULTIVITAMINS,THERAPEUT 1 TAB PO SCH (10:42)
[2021-07-10] MEDS: FENOFIBRATE 160 MG TAB PO SCH (10:42)
[2021-07-10] MEDS: CLOPIDOGREL 75 MG TABLET PO SCH (10:42)
[2021-07-10] MEDS: VITAMIN D 5,000 UNIT CAP PO SCH (10:42)
[2021-07-10] MEDS: GABAPENTIN 400 MG CAP PO SCH ×3 (10:42→21:29)
[2021-07-10] MEDS: SERTRALINE HCL 100 MG TAB PO SCH ×2 (10:42→21:30)
[2021-07-10] MEDS: ATORVASTATIN 10 MG TAB PO SCH (10:42)
[2021-07-10] MEDS: HEPARIN 5000 UNIT/ML 1 ML VIAL SQ SCH (10:43)
[2021-07-10] MEDS ORDERED: SODIUM CHLORIDE 0.9% 20 ML VIAL IV PRN (12:36)
[2021-07-10] MEDS ORDERED: PANTOPRAZOLE 40 MG INJ IVP ONE (12:36)
[2021-07-10 13:18] LABS: Absolute Lymphocytes (CBC) 0.8 K/uL (0.7-4.9); Hematocrit 24.1 % (39.6-49.0); Lymphocytes % 16.5 % (15.3-44.8); MPV 7.2 fL (7.6-11.3); RBC Red Blood Cell Count 2.65 M/uL (4.33-5.43)
[2021-07-10 13:25] LABS: Protime INR 1.12
[2021-07-10 14:00] LABS: Folic Acid, (Folate) > 20.0 ng/mL (3.1-17.5)
--- NOTE | 2021-07-10 20:00 | P.PN ---
Subjective Date of Service: 07/10/21 Chief Complaint: OSVALDO, Dehydration, Falls Patient is lying comfortably in bed. Not agitated this morning. Physical Examination - Vital Signs Temperature: 97.8 F Blood Pressure: 134/62 Pulse: 86 Respirations: 16 Pulse Ox (%): 94 - Physical Exam General: In no apparent distress, Confused, Other (Frail-appearing) HEENT: Mucous membr. moist/pink Neck: JVD not distended Respiratory: Clear to auscultation bilaterally, Normal air movement Cardiovascular: No edema, Regular rate/rhythm, Normal S1 S2 Gastrointestinal: Normal bowel sounds, Soft and benign, Non-distended Musculoskeletal: No swelling Integumentary: No cyanosis Neurological: Other - Studies Microbiology Data (last 24 hrs): 07/08/21 09:36 Clean Catch Urine [place] Count - Final No growth. 07/08/21 09:36 Clean Catch Urine - Final No growth. Medications List Reviewed: Yes Assessment And Plan - Current Problems (Diagnosis) (1) Metabolic encephalopathy Current Visit: Yes Status: Acute (2) OSVALDO (acute kidney injury) Current Visit: Yes Status: Acute (3) Falls Current Visit: Yes Status: Acute Qualifiers: Encounter type: initial encounter Qualified Code(s): W19.XXXA - Unspecified fall, initial encounter (4) UTI (urinary tract infection) Current Visit: Yes Status: Acute Qualifiers: Urinary tract infection type: acute cystitis Hematuria presence: with h ematuria Qualified Code(s): N30.01 - Acute cystitis with hematuria (5) History of CVA (cerebrovascular accident) Current Visit: Yes Status: Chronic - Plan Patient completed 3 days of IV Rocephin for UTI. Urine culture shows no growth. On IV fluid for OSVALDO and dehydration. Patient is generally weak Has dementia with behavioral abnormalities and sundowning. Continue Seroquel as needed. Spouse want to consider hospice. forestry worker consulted for hospice evaluation.
[2021-07-10 20:13] VITALS: O2SAT 96
[2021-07-10] MEDS ORDERED: SOD FERRIC GLUC COMPLX/SUCROSE 250 MG in NA CHLORIDE 0.9% 100 ML IV ONE (21:21)
--- NOTE | 2021-07-10 21:26 | P.PN ---
Date of Service: 07/10/21 Vital Signs Temp Pulse Resp BP Pulse Ox 97.8 F 86 16 134/62 94 07/10/21 20:00 07/10/21 20:00 07/10/21 20:00 07/10/21 20:00 07/10/21 20:00 Medications Acetaminophen (Acetaminophen 500 Mg Tab) 500 mg PO Q4HP PRN PRN Reason: Pain scale 2-4 (Mild) Atorvastatin Calcium (Atorvastatin 10 Mg Tab) 10 mg PO DAILY [facility] Last Admin: 07/10/21 10:42 Dose: 10 mg Documented by: Cholecalciferol (Vitamin D 5,000 Unit Cap) 5,000 unit PO DAILY [facility] Last Admin: 07/10/21 10:42 Dose: 5,000 unit Documented by: Clopidogrel Bisulfate (Clopidogrel 75 Mg Tablet) 75 mg PO DAILY [facility] Last Admin: 07/10/21 10:42 Dose: 75 mg Documented by: Fenofibrate (Fenofibrate 160 Mg Tab) 160 mg PO DAILY [facility] Last Admin: 07/10/21 10:42 Dose: 160 mg Documented by: Gabapentin (Gabapentin 400 Mg Cap) 1,200 mg PO TID [facility] Last Admin: 07/10/21 13:54 Dose: 1,200 mg Documented by: Home Med (Levothyroxine Sodium [Levothyroxine]) 1 tab PO DAILY [facility] Last Admin: 07/10/21 09:00 Dose: Not Given Documented by: Ceftriaxone Sodium 1,000 mg/ (Sodium Chloride) 50 mls @ 100 mls/hr IVPB DAILY [facility]; Protocol Last Admin: 07/10/21 10:42 Dose: 50 mls Documented by: Ferric Sodium Gluconate Complex 250 mg/ Sodium Chloride 120 mls @ 100 mls/hr IV ONCE ONE Stop: 07/10/21 22:26 Ondansetron HCl (Ondansetron 4 Mg/2 Ml Vial) 4 mg IV Q6HP PRN PRN Reason: NAUSEA / VOMITING Pantoprazole Sodium (Pantoprazole 40 Mg Inj) 40 mg IVP Q12HR [facility]; Protocol Quetiapine Fumarate (Quetiapine 25 Mg Tab) 25 mg PO BEDTIME [facility] Last Admin: 07/09/21 21:08 Dose: 25 mg Documented by: Sertraline HCl (Sertraline Hcl 100 Mg Tab) 100 mg PO BID [facility] Last Admin: 07/10/21 10:42 Dose: 100 mg Documented by: Sodium Chloride (Flush Normal Saline 10 Ml) 10 ml IV BID [facility] Last Admin: 07/10/21 09:00 Dose: 10 ml Documented by: Tamsulosin HCl (Tamsulosin 0.4 Mg Sr Cap) 0.4 mg PO BID [facility] Last Admin: 07/10/21 10:42 Dose: 0.4 mg Documented by: Trazodone HCl (Trazodone 50 Mg Tablet) 100 mg PO BEDTIME [facility] Last Admin: 07/09/21 21:09 Dose: 100 mg Documented by: Vitamin B Complex/Vit C/Folic Acid (Multivitamins,Therapeut 1 Tab) 1 tab PO DAILY [facility] Last Admin: 07/10/21 10:42 Dose: 1 tab Documented by: Microbiology Results 07/08/21 09:36 Clean Catch Urine [place] Count - Final No growth. 07/08/21 09:36 Clean Catch Urine - Final No growth. Assessment/ Plan: Nephrology No dyspnea No chest pain No acute events overnight Vitals, medications, blood work and imaging reviewed in the chart General: In no apparent distress, Cooperative HEENT: Atraumatic Neck: Supple Respiratory: Clear to auscultation bilaterally Cardiovascular: No edema, Regular rate/rhythm Gastrointestinal: Soft and benign, Non-distended Musculoskeletal: No clubbing, No contractures Integumentary: No rashes Neurological: Abnormal speech Laboratory Data (last 24 hrs) 07/07/21 17:10: WBC 8.90 D, Hgb 8.6 L D, Hct 26.2 L D, Plt Count 354 07/07/21 17:10: Sodium 135 L, Potassium 5.1, BUN 39 H, Creatinine 2.16 H, Glucose 108 H, Total Bilirubin 0.3, AST 41 H, ALT 31, Alkaline Phosphatase 51 Imagings Data: EXAM DESCRIPTION: US - Renal Ultrasound-Complete - 07/08/2021 6:26 am CLINICAL HISTORY: OSVALDO, assess for hydronephrosis, pyelonephritis COMPARISON: ABDOMINAL EXAM COMPLETE dated 12/31/2013 FINDINGS: Patient cooperation issues resulted in a very limited study. The right kidney measures 7.4 x 7.0 x 6.3 cm.. No hydronephrosis, focal mass or perinephric fluid. The left kidney measures poorly visualized. Moderate urinary bladder debris and cystic wall thickening IMPRESSION: The examination was very limited due to patient cooperation issues. Normal appearance of the right kidney. The left kidney was very poorly evaluate. Urinary bladder debris in cystic wall thickening could be related to chronic infection. Cystoscopy could be performed for further visualization of this region. EXAM DESCRIPTION: [place] Single View07/07/2021 5:07 pm CLINICAL HISTORY: Chest pain COMPARISON: 2009 FINDINGS: The lungs appear clear of acute infiltrate. The heart is normal size IMPRESSION: No acute abnormalities displayed EXAM DESCRIPTION: CT - Head C Spine Mpr Wo Con - 07/07/2021 4:54 pm CLINICAL HISTORY: Head and neck injury status post fall. Head and neck pain COMPARISON: None. TECHNIQUE: Computed axial tomography of the head and cervical spine was obtained. Sagittal and coronal reconstruction was performed. All CT scans are performed using dose optimization technique as appropriate and may include automated exposure control or mA/KV adjustment according to patient size. FINDINGS: The images are degraded by patient motion artifact. 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 Cerebral atrophy An intracranial bleed is not seen. The ventricles are normal in caliber. An extra-axial fluid collection is not noted.Fluid within the visualized sinuses and mastoids is not seen A cervical fracture is not visualized. No dislocation is noted. IMPRESSION: Images degraded by patient motion artifact No acute intracranial abnormality is seen. A cervical fracture is not visualized. 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
[2021-07-10] MEDS: TRAZODONE 50 MG TABLET PO SCH (21:29)
[2021-07-10] MEDS: QUETIAPINE 25 MG TAB PO SCH (21:30)
[2021-07-10] MEDS: PANTOPRAZOLE 40 MG INJ IVP SCH (21:30)
[2021-07-10] MEDS ORDERED: SOD FERRIC GLUC COMPLX/SUCROSE 62.5 MG/5 ML VIAL IV ONE (22:31)
[2021-07-10] MEDS ORDERED: NA CHLORIDE 0.9% 100 ML ONE (22:42)
[2021-07-11] MEDS: VITAMIN D 5,000 UNIT CAP PO SCH (09:00)
[2021-07-11] MEDS: HOME MED 1 EA UNK (Levothyroxine Sodium [Levothyroxine] 137 MCG Capsule) PO SCH (09:00)
[2021-07-11] MEDS: CEFTRIAXONE 1,000 MG in NA CHLORIDE 0.9% 50 ML IVPB SCH (09:25)
[2021-07-11] MEDS: PANTOPRAZOLE 40 MG INJ IVP SCH (09:30)
[2021-07-11] MEDS: ATORVASTATIN 10 MG TAB PO SCH (09:30)
[2021-07-11] MEDS: SERTRALINE HCL 100 MG TAB PO SCH (09:31)
[2021-07-11] MEDS: TAMSULOSIN 0.4 MG SR CAP PO SCH (09:31)
[2021-07-11] MEDS: GABAPENTIN 400 MG CAP PO SCH ×2 (09:31→13:03)
[2021-07-11] MEDS: MULTIVITAMINS,THERAPEUT 1 TAB PO SCH (09:31)
[2021-07-11] MEDS: FENOFIBRATE 160 MG TAB PO SCH (09:32)
--- NOTE | 2021-07-11 15:34 | P.DS ---
Admission Date: 07/08/21 Discharge Date: 07/11/21 Disposition: ROUTINE DISCHARGE Discharge Condition: GOOD Reason for Admission: OSVALDO, Dehydration, Falls Hospital Course: Patient is a 81-year-old male with a past medical history of CVA and hypertension. He was admitted after a fall that included head contusion. He was taking Plavix at the time. noted that patient became encephalopathic. As per chart review, he was alert and oriented x1 on admission. He was also found to have evidence of OSVALDO. His renal function improved with IV fluid. His mental status improved throughout the rest of his hospitalization. He was placed on 3-day course of ceftriaxone for UTI. His urine culture yielded no growth. Patient has been made hospice and can be discharged today. Today was my first encounter with him. He appeared appropriate and followed instructions. Vital Signs/Physical Exam: Temp Pulse Resp BP Pulse Ox 98.4 F 81 20 110/53 L 95 07/11/21 12:00 07/11/21 12:00 07/11/21 12:00 07/11/21 12:00 07/11/21 12:00 General: In no apparent distress, Cooperative HEENT: Atraumatic, Normocephalic Respiratory: Clear to auscultation bilaterally, Normal air movement Cardiovascular: Regular rate/rhythm, Normal S1 S2 Neurological: Normal speech, Normal affect Laboratory Data at Discharge: WBC 4.70 K/uL (4.3-10.9) 07/10/21 12:48 Hgb 7.7 g/dL (13.6-17.9) L 07/10/21 12:48 Hct 24.1 % (39.6-49.0) L 07/10/21 12:48 Plt Count 303 K/uL (152-406) 07/10/21 12:48 PT 12.3 SECONDS (9.5-12.5) 07/10/21 12:48 INR 1.12 07/10/21 12:48 APTT 36.8 SECONDS (24.3-36.9) 07/10/21 12:48 Sodium 142 mmol/L (136-145) 07/10/21 03:27 Potassium 4.3 mmol/L (3.5-5.1) 07/10/21 03:27 BUN 23 mg/dL (7-18) H 07/10/21 03:27 Creatinine 1.16 mg/dL (0.55-1.3) 07/10/21 03:27 Glucose 83 mg/dL (74-106) 07/10/21 03:27 Phosphorus 2.5 mg/dL (2.5-4.9) 07/10/21 03:27 Magnesium 2.1 mg/dL (1.8-2.4) 07/10/21 03:27 Total Bilirubin 0.4 mg/dL (0.2-1.0) 07/10/21 03:27 AST 46 U/L (15-37) H 07/10/21 03:27 ALT 28 U/L (12-78) 07/10/21 03:27 Alkaline Phosphatase 36 U/L (45-117) L 07/10/21 03:27 Triglycerides 172 mg/dL (<150) H 07/08/21 03:45 Cholesterol 113 mg/dL (<200) 07/08/21 03:45 HDL Cholesterol 30 mg/dL (40-60) L 07/08/21 03:45 Cholesterol/HDL Ratio 3.77 07/08/21 03:45 Home Medications: Atorvastatin Calcium 10 mg PO DAILY 07/08/21 Clopidogrel Bisulfate [Plavix] 1 tab PO DAILY 07/08/21 Fenofibrate 160 mg PO DAILY 07/08/21 Gabapentin 2 tab PO TID 07/08/21 Levothyroxine Sodium [Levothyroxine] 1 tab PO DAILY 07/08/21 Sertraline HCl 1 tab PO BID 07/08/21 Tamsulosin HCl 1 tab PO BID 07/08/21 Trazodone HCl 1 tab PO DAILY 07/08/21 lisinopriL [Lisinopril] 1 tab PO DAILY 07/08/21 Cefdinir [Omnicef] 300 mg PO BID #20 capsule 07/09/21 New Medications: Cefdinir [Omnicef] 300 mg PO BID #20 capsule Physician Discharge Instructions: -DC IV and DC home -Follow-up with PCP in 1 to 2 weeks -Follow-up with nephrology in 1 to 2 weeks -Please call Dr. Siegel at [phone] if any questions regarding hospital stay -Please call nursing station at [phone] if any nursing or medication questions -Return to the emergency room if symptoms worsen Diet: Renal Activity: Fall precautions Followup: NONE,NONE [Primary Care Provider] -
[2021-07-11 16:34] VITALS: BP 132/67; TEMP 97.2
--- NOTE | 2021-07-11 23:13 | P.PN ---
Date of Service: 07/11/21 Vital Signs Temp Pulse Resp BP Pulse Ox 97.2 F 75 20 132/67 96 07/11/21 16:00 07/11/21 16:00 07/11/21 16:00 07/11/21 16:00 07/11/21 16:00 Microbiology Results 07/08/21 09:36 Clean Catch Urine [place] Count - Final No growth. 07/08/21 09:36 Clean Catch Urine - Final No growth. Assessment/ Plan: Nephrology No dyspnea No chest pain Feeling better with an improved appetite No acute events overnight Vitals, medications, blood work and imaging reviewed in the chart General: In no apparent distress, Cooperative HEENT: Atraumatic Neck: Supple Respiratory: Clear to auscultation bilaterally Cardiovascular: No edema, Regular rate/rhythm Gastrointestinal: Soft and benign, Non-distended Musculoskeletal: No clubbing, No contractures Integumentary: No rashes Neurological: Abnormal speech Laboratory Data (last 24 hrs) 07/07/21 17:10: WBC 8.90 D, Hgb 8.6 L D, Hct 26.2 L D, Plt Count 354 07/07/21 17:10: Sodium 135 L, Potassium 5.1, BUN 39 H, Creatinine 2.16 H, Glucose 108 H, Total Bilirubin 0.3, AST 41 H, ALT 31, Alkaline Phosphatase 51 Imagings Data: EXAM DESCRIPTION: US - Renal Ultrasound-Complete - 07/08/2021 6:26 am CLINICAL HISTORY: OSVALDO, assess for hydronephrosis, pyelonephritis COMPARISON: ABDOMINAL EXAM COMPLETE dated 12/31/2013 FINDINGS: Patient cooperation issues resulted in a very limited study. The right kidney measures 7.4 x 7.0 x 6.3 cm.. No hydronephrosis, focal mass or perinephric fluid. The left kidney measures poorly visualized. Moderate urinary bladder debris and cystic wall thickening IMPRESSION: The examination was very limited due to patient cooperation issues. Normal appearance of the right kidney. The left kidney was very poorly evaluate. Urinary bladder debris in cystic wall thickening could be related to chronic infection. Cystoscopy could be performed for further visualization of this region. EXAM DESCRIPTION: [place] Single View07/07/2021 5:07 pm CLINICAL HISTORY: Chest pain COMPARISON: 2009 FINDINGS: The lungs appear clear of acute infiltrate. The heart is normal size IMPRESSION: No acute abnormalities displayed EXAM DESCRIPTION: CT - Head C Spine Mpr Wo Con - 07/07/2021 4:54 pm CLINICAL HISTORY: Head and neck injury status post fall. Head and neck pain COMPARISON: None. TECHNIQUE: Computed axial tomography of the head and cervical spine was obtained. Sagittal and coronal reconstruction was performed. All CT scans are performed using dose optimization technique as appropriate and may include automated exposure control or mA/KV adjustment according to patient size. FINDINGS: The images are degraded by patient motion artifact. 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 Cerebral atrophy An intracranial bleed is not seen. The ventricles are normal in caliber. An extra-axial fluid collection is not noted.Fluid within the visualized sinuses and mastoids is not seen A cervical fracture is not visualized. No dislocation is noted. IMPRESSION: Images degraded by patient motion artifact No acute intracranial abnormality is seen. A cervical fracture is not visualized. 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
== END 2021-07-11 19:10 | disposition hospice, home (50) | DRG 682 ==
LOC: ER 16:28 → ERHOLD 21:36 → OBSVTOIN 07-08 12:35 → 2ND 07-08 17:43
PROVIDERS: ADMIT Hospitalist; ATTEND Internal Medicine
DX: N17.9 Acute kidney failure, unspecified (principal); G93.41 Metabolic encephalopathy; N30.01 Acute cystitis with hematuria; F05 Delirium due to known physiological condition; F03.91 Unspecified dementia, unspecified severity, with behavioral disturbance; E86.0 Dehydration; I95.89 Other hypotension; E86.1 Hypovolemia; D50.9 Iron deficiency anemia, unspecified; N40.1 Benign prostatic hyperplasia with lower urinary tract symptoms; M89.9 Disorder of bone, unspecified; I12.9 Hypertensive chronic kidney disease with stage 1 through stage 4 chronic kidney disease, or unspecified chronic kidney disease; N18.30 Chronic kidney disease, stage 3 unspecified; T36.8X5A Adverse effect of other systemic antibiotics, initial encounter; Z88.1 Allergy status to other antibiotic agents; Z86.73 Personal history of transient ischemic attack (TIA), and cerebral infarction without residual deficits; Z79.02 Long term (current) use of antithrombotics/antiplatelets; Z87.891 Personal history of nicotine dependence; Z79.890 Hormone replacement therapy; Z79.899 Other long term (current) drug therapy; Z20.822 Contact with and (suspected) exposure to COVID-19
CPT/HCPCS: 36415; 70450; 71045; 72125; 76770; 80048; 80053; 80061; 80076; 81003; 81015; 82550; 82570; 82607; 82746; 83540; 83735; 83935; 84100; 84132; 84156; 84300; 84439; 84443; 84466; 84484; 85025; 85044; 85610; 85730; 86850; 86900; 86901; 87086; 87088; 93005; 96360; 96361; 97110; 97161; 97530; 99285; C9113; J1644; J2270; J2916; J7030; J7040; U0003